=== PATIENT | female | born 1970 ===

== ENCOUNTER 2017-08-14 08:26 | Day surgery (SDC) | payer OTHER ==
[~2017-08-14 08:26] MED LIST: AMLODIPINE BESYL5 MG PO; ATORVASTATIN CA80 MG PO; CYMBALTA60 MG PO; ESTROVEN MAX400 MCG PO; IRBESARTAN-HCT1 EAC1 PO; NEURONTIN300 MG PO; ZETIA10 MG PO
== END 2017-08-14 16:20 | disposition home or self-care (01) ==
LOC: CIR.AMB 08:26
DX: M67.441 Ganglion, right hand (principal)